=== PATIENT | female | born 1950 | race Caucasian/White ===

== ENCOUNTER → 2021-02-02 13:14 | Outpatient (CLI) | payer MEDICARE, SELFPAY ==
--- NOTE | ~2021-02-02 | MM_ITS ---
EXAMINATION: MM screening [facility] BI w wendy HISTORY: Screening TECHNIQUE: Craniocaudal and mediolateral oblique 3-D tomosynthesis images were obtained and synthetic 2-D images were generated. CAD analysis was submitted and interpreted. COMPARISON: Comparison to multiple prior studies sequentially, with oldest reviewed study dated 06/19. BREAST PARENCHYMAL COMPOSITION: There are scattered areas of fibroglandular density. FINDINGS: There is no evidence of suspicious mass, calcification, or architectural distortion to sugg est malignancy in either breast. There has been no suspicious interval change. IMPRESSION: 1. No mammographic evidence of malignancy. 2. Recommend routine screening mammography in one year. BI-RADS Category 1: Negative Reviewed, dictated and finalized at location A.
== END ==
PROVIDERS: Visit Provider Obstetrics & Gynecology Gynecology
DX: Z12.31 Encounter for screening mammogram for malignant neoplasm of breast (principal)
CPT/HCPCS: 77063; 77067

== ENCOUNTER → 2022-06-28 15:32 | Outpatient (CLI) | payer MEDICARE, SELFPAY ==
--- NOTE | ~2022-06-28 | MM_ITS ---
EXAMINATION: MM screening [facility] BI w wendy HISTORY: Screening TECHNIQUE: Craniocaudal and mediolateral oblique 3-D tomosynthesis images were obtained and synthetic 2-D images were generated. CAD analysis was submitted and interpreted. COMPARISON: Comparison to multiple prior studies sequentially, with oldest reviewed study dated 06/19. BREAST PARENCHYMAL COMPOSITION: There are scattered areas of fibroglandular density. FINDINGS: There is no evidence of suspicious mass, calcification, or architectural distortion to sugg est malignancy in either breast. There has been no suspicious interval change. IMPRESSION: 1. No mammographic evidence of malignancy. 2. Recommend routine screening mammography in one year. BI-RADS Category 1: Negative Reviewed, dictated and finalized at location A.
== END ==
PROVIDERS: PCP Family Medicine; Visit Provider Obstetrics & Gynecology Gynecology
DX: Z12.31 Encounter for screening mammogram for malignant neoplasm of breast (principal)
CPT/HCPCS: 77063; 77067

== ENCOUNTER → 2023-09-25 12:31 | Outpatient (CLI) | payer MEDICARE, SELFPAY ==
--- NOTE | ~2023-09-25 | MM_ITS ---
EXAMINATION: MM screening [facility] BI w wendy HISTORY: Screening mammogram TECHNIQUE: Craniocaudal and mediolateral oblique 3-D tomosynthesis images were obtained and synthetic 2-D images were generated. CAD analysis was submitted and interpreted. COMPARISON: 06/28/2022, 02/02/2021, 10/11/2019 BREAST PARENCHYMAL COMPOSITION: There are scattered areas of fibroglandular density. FINDINGS: RIGHT BREAST: No suspicious mass, calcification, or architectural distortion are identified to sugges t malignancy. There has been no suspicious interval change. LEFT BREAST: An asymmetry is present in the axillary tail of the breast on the mediolateral oblique v iew. IMPRESSION: 1. Left breast asymmetry. 2. Additional mammographic views and possible breast ultrasound are recommended. BI-RADS Category 0: Incomplete: Needs additional imaging evaluation. Reviewed, dictated and finalized at location A. SS LEAD IMPRESSION: 1. Left breast asymmetry. 2. Additional mammographic views and possible breast ultrasound are recommended . BI-RADS Category 0: Incomplete: Needs additional imaging evaluation.
== END ==
PROVIDERS: PCP Advanced Practice Midwife; Visit Provider Advanced Practice Midwife
DX: Z12.31 Encounter for screening mammogram for malignant neoplasm of breast (principal); R92.8 Other abnormal and inconclusive findings on diagnostic imaging of breast
CPT/HCPCS: 77063; 77067

== ENCOUNTER → 2023-10-24 09:12 | Outpatient (CLI) | payer MEDICARE, SELFPAY ==
--- NOTE | ~2023-10-24 | MMUS_ITS ---
EXAMINATION: MM diagnostic [facility] LT w wendy, US axilla LT HISTORY: Left axillary tail mammographic asymmetry reported on screening MLO view of 09/25/2023 TECHNIQUE: Additional 3-D tomosynthesis images of the left breast were performed and synthetic 2-D im ages were generated. CAD analysis was submitted and interpreted. High resolution left axillary ultras ound was performed. COMPARISON: 09/25/2023, 06/28/2022, 02/02/2021 bilateral screening mammogram examinations FINDINGS: MAMMOGRAPHIC FINDINGS: The area of asymmetry appears to largely compress out, likely resulting from a skin fold. Several philip ign appearing small lymph nodes are noted.. ULTRASOUND: Approximately 9 x 13 mm and 10 x 18 mm benign-appearing lymph nodes are noted, with relatively thin c ortices, prominent fatty denilson. No suspicious mass or shadowing is detected in the left axillary area. IMPRESSION: 1. Benign findings 2. Routine annual mammographic screening is recommended BI-RADS Category 2: Benign finding(s). Reviewed, dictated and finalized at location A. EPRENEUR IMPRESSION: 1. Benign findings 2. Routine annual mammographic screening is recommended BI-RADS Category 2: Benign finding(s).
== END ==
PROVIDERS: PCP Obstetrics & Gynecology Gynecology; Visit Provider Obstetrics & Gynecology Gynecology
DX: R92.8 Other abnormal and inconclusive findings on diagnostic imaging of breast (principal); R22.32 Localized swelling, mass and lump, left upper limb
CPT/HCPCS: 76882; 77061; 77065; G0279

== ENCOUNTER → 2023-10-24 09:15 | Outpatient (CLI) | payer MEDICARE, SELFPAY ==
--- NOTE | ~2023-10-24 | US_ITS ---
EXAMINATION: US retroperitoneal comp DATE: 10/24/2023 09:33 INDICATION: Chronic cystitis TECHNIQUE: Multiple ultrasound grayscale images of the kidneys were obtained. COMPARISON: None. FINDINGS: The right kidney measures 9.7 x 4.6 x 4.4 cm. The left kidney measures 9.9 x 5.7 x 4.5 cm. The kidney s demonstrate normal echogenicity. There is no hydronephrosis in either kidney. No stones identified . The bladder is normal. Incidentally noted diffuse hepatic steatosis with diffuse increased hepatic parenchymal echogenicity. IMPRESSION: 1. Normal kidneys without hydronephrosis. 2. Diffuse hepatic steatosis. Reviewed, dictated and finalized at location A. 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
== END ==
PROVIDERS: PCP Physician Assistant; Visit Provider Physician Assistant
DX: K76.0 Fatty (change of) liver, not elsewhere classified (principal); N30.20 Other chronic cystitis without hematuria
CPT/HCPCS: 76770

== ENCOUNTER 2025-02-19 14:35 | Outpatient (CLI) | payer MEDICARE, SELFPAY ==
--- NOTE | ~2025-02-19 | MM_ITS ---
EXAMINATION: MM screening [facility] BI w wendy HISTORY: Screening TECHNIQUE: Craniocaudal and mediolateral oblique 3-D tomosynthesis images were obtained and synthetic 2-D images were generated. CAD analysis was submitted and interpreted. COMPARISON: 09/25/2023 through 07/05/2017 BREAST PARENCHYMAL COMPOSITION: There are scattered areas of fibroglandular density. FINDINGS: There is no evidence of suspicious mass, calcification, or architectural distortion to sugg est malignancy in either breast. There has been no suspicious interval change. IMPRESSION: 1. No mammographic evidence of malignancy. 2. Recommend routine screening mammography in one year. BI-RADS Category 1: Negative Reviewed, dictated and finalized at location B.
== END 2025-02-19 14:36 | disposition home or self-care (01) ==
PROVIDERS: PCP Obstetrics & Gynecology Gynecology; Visit Provider Obstetrics & Gynecology Gynecology
DX: Z12.31 Encounter for screening mammogram for malignant neoplasm of breast (principal)
CPT/HCPCS: 77063; 77067

== ENCOUNTER 2025-05-23 13:42 | Outpatient (CLI) | payer MEDICARE, SELFPAY ==
--- NOTE | ~2025-05-23 | DEXA_ITS ---
Bone Density Report Name: MARIELA PATRICIO Age: 74 Sex: Female Ethnicity: White Date of : 1950 Indication: postmenopausal; screening for osteoporosis; Referring Provider: TRAVON QUINTANA Study: Bone densitometry was performed. Exam Date: May 23, 2025 Accession number: [id number] Bone Density: Region BMD T-score Z-score Classification AP Spine(L1-L4) 1.023 -0.2 2.0 Normal Femoral Neck (Left) 0.756 -0.8 1.1 Normal Total Hip (Left) 0.910 -0.3 1.4 Normal Femoral Neck (Right) 0.708 -1.3 0.7 Osteopenia Total Hip (Right) 0.885 -0.5 1.2 Normal Total Hip Mean 0.897 -0.4 1.3 Normal World Health Organization criteria for BMD impression classify patients as: Normal (T-score at or above -1.0), Osteopenia (T-score between -1.0 and -2.5), or Osteoporosis (T-score at or below -2.5). 10-year Fracture Risk(1): Major Osteoporotic Fracture 9.8% Hip Fracture 1.4% Reported Risk Factors: [place] (), Neck BMD=0.708, BMI=24.6 (1) FRAX(R) Version 3.08. Fracture probability calculated for an untreated patient. Fracture probability may be lower if the patient has received treatment. Previous Exams: -- Region Exam Age BMD T-score BMD Change BMD Change Date g/cm2 vs Baseline vs Previous -- AP Spine (L1-L4) 05/23/2025 74 1.023 -0.2 -9.1%* -8.0%* 08/16/2018 67 1.112 0.6 -1.2% 4.8%* 01/24/2013 62 1.061 0.1 -5.8%* -3.6%* 07/01/2009 58 1.100 0.5 -2.3%* -2.3%* 12/25/2006 56 1.126 0.7 Total Hip(Left) 05/23/2025 74 0.910 -0.3 -14.1%* -5.7%* 08/16/2018 67 0.965 0.2 -8.9%* -6.9%* 01/24/2013 62 1.037 0.8 -2.1% 3.0%* 07/01/2009 58 1.007 0.5 -5.0%* -5.0%* 12/25/2006 56 1.060 1.0 Total Hip(Right) 05/23/2025 74 0.885 -0.5 -11.8%* -8.1%* 08/16/2018 67 0.963 0.2 -4.0%* -2.2% 01/24/2013 62 0.984 0.3 -1.8% -0.8% 07/01/2009 58 0.992 0.4 -1.0% -1.0% 12/25/2006 56 1.003 0.5 -- *Denotes significance at 95% confidence level, LSC for AP Spine = 0.022 g/cm2, LSC for Total Hip = 0.027 g/cm2 Clinical Information Provided by Patient: Has used the following medications: Vitamin D Patient maximum height was 65 Menopause Age: 52 Drinks caffeinated beverages Onset of menses at age 15 Number of children 1 Impression: The patient has low bone mass, based on the Right Femoral Neck T-score. The patient has an estimated ten-year risk of hip fracture of 1.4% and an estimated ten-year risk of major fracture of 9.8%, based on the WHO FRAX algorithm. The BMD for the AP Spine (L1-L4) decreased, changing by -8.0% since the last DXA exam. The BMD for the Total Hip(Left) decreased, changing by -5.7% since the last DXA exam. The BMD for the Total Hip(Right) decreased, changing by -8.1% since the last DXA exam. Discussion: BONE DENSITY IS LOW AT ONE OR MORE SKELETAL SITES. This patient's lowest T-score is low at one or more skeletal sites. It meets the World Health Organization's (WHO) criteria for ?low bone mass? (T-score between -1.0 and -2.5). The patient's 10-year risk of fracture as calculated by FRAX is less than the threshold where pharmacological therapy is recommended by the National Osteoporosis Foundation (NOF). However, all treatment decisions require clinical judgment and consideration of individual patient factors, including patient preferences, comorbidities, previous drug use, risk factors not captured in the FRAX model (e.g., frailty, falls, vitamin D deficiency, increased bone turnover, interval significant decline in bone density) and possible under or overestimation of fracture risk by FRAX. The patient should follow a healthful lifestyle (good nutrition with adequate calcium and vitamin D, and appropriate weight-bearing exercise). Follow-Up: Consider repeating this study in 2 years to reassess this patient's status, or sooner if there is some new clinical indication. Reported by: RIGO on 05/23/2025 2:04:00 PM. Reviewed, dictated and finalized at location A.
== END 2025-05-23 13:43 | disposition home or self-care (01) ==
LOC: MICIMG 13:43
PROVIDERS: PCP Obstetrics & Gynecology Gynecology; Visit Provider Obstetrics & Gynecology Gynecology
DX: M85.851 Other specified disorders of bone density and structure, right thigh (principal); Z78.0 Asymptomatic menopausal state
CPT/HCPCS: 77080